=== PATIENT | male | born 1955 | race Caucasian/White ===

== ENCOUNTER 2017-09-13 19:34 | Inpatient (IN) | payer MEDICARE ==
[~2017-09-13] VITALS: Ht 165.1 cm; Wt 133.6 kg
[2017-09-13 20:09] LABS: HEMATOCRIT 22.9 % (41-53); HEMOGLOBIN 7.5 g/dL (13.5-17.5); MEAN CORPUSCULAR HGB CONC 32.6 G/dL (31.0-37.0); MEAN CORPUSCULAR VOLUME 104 fL (80-100); RED BLOOD CELL COUNT(AUTO) 2.19 MIL/uL (4.50-5.90); RED CELL DISTRIBUTION WIDTH 20.3 % (11.5-14.5); WHITE BLOOD COUNT (AUTO) 18.7 K/uL (4.5-11.0)
[2017-09-13 20:16] LABS: CALCIUM, TOTAL 7.9 mg/dL (8.8-10.5); CREATININE 2.72 mg/dL (0.60-1.30); POTASSIUM 4.5 mmol/L (3.5-5.1)
[2017-09-13 20:22] LABS: TOTAL PROTEIN, SERUM 6.3 g/dL (6.4-8.2)
[2017-09-13] MEDS ORDERED: 0.9% SODIUM CHLORIDE 5 ML NEB SOLUTION NEB ONE (20:23)
[2017-09-13] MEDS ORDERED: ALBUTEROL SULFATE 5 MG/ML 20 ML NEB SOLN [BULK] NEB ONE (20:30)
[2017-09-13] MEDS ORDERED: IPRATROPIUM BROMIDE 0.5 MG/2.5 ML NEB SOLUTION NEB ONE (20:30)
[2017-09-13 21:28] LABS: PLATELET COUNT (AUTO) 91 K/uL (150-450)
[2017-09-13] MEDS ORDERED: AZITHROMYCIN 500 MG/NS 250 ML IV ONE (21:30)
[2017-09-13] MEDS ORDERED: CefTRIAXone 1 GM/DEXTROSE 50 ML IV ONE (21:30)
[2017-09-13] MEDS ORDERED: SODIUM CHLORIDE 0.9% 1,000 ML IV ONE ×4 (21:30→22:45)
[2017-09-13] MEDS ORDERED: ASPIRIN 325 MG TABLET PO ONE (21:30)
[2017-09-13 21:32] LABS: CREATINE KINASE MB 11.3 ng/mL (0-5)
[2017-09-13 21:43] LABS: BAND NEUTROPHILS % (MANUAL) 30 % (1-5); BASOPHILS % (MANUAL) 1 % (0-2); EOSINOPHILS % (MANUAL) 1 % (1-6); LYMPHOCYTES % (MANUAL) 7 % (22-44); METAMYELOCYTES % 4 % (0-0); MYELOCYTES % 3 % (0-0); TOTAL CELLS COUNTED 100
[2017-09-13 21:45] LABS: RBC MORPHOLOGY COMMENT ABNORMAL R
[2017-09-13] MEDS ORDERED: ONDANSETRON HCL 4 MG/2 ML VIAL IVP PRN ×2 (21:45→22:45)
[2017-09-13] MEDS ORDERED: 0.9% SODIUM CHLORIDE 10 ML SYRINGE IVP PRN (21:45)
[2017-09-13] MEDS ORDERED: ACETAMINOPHEN 325 MG TABLET PO PRN ×2 (21:45→22:45)
[2017-09-13 22:25] LABS: LACTIC ACID 12.8 mmol/L (0.4-2.0)
[2017-09-13] MEDS ORDERED: BISACODYL 10 MG RECTAL RECTAL SUPPOSITORY PR PRN (22:45)
[2017-09-13] MEDS ORDERED: MORPHINE SULFATE 2 MG/ML SYRINGE IVP PRN (22:45)
[2017-09-13] MEDS ORDERED: ZOLPIDEM TARTRATE 5 MG TABLET PO PRN (22:45)
[2017-09-13] MEDS ORDERED: MAGNESIUM HYDROXIDE SUSPENSION 30 ML UDCUP PO PRN (22:45)
[2017-09-13] MEDS ORDERED: *CLINICAL-LEVOFLOXACIN IVPB DOSING CLINICAL ONE ×2 (22:45)
[2017-09-13] MEDS ORDERED: HYDROCODONE/ACETAMINOPHEN 5-325 MG TABLET PO PRN (22:45)
[2017-09-13 23:46] LABS: REFLEX LACTIC ACID? YES YES
[2017-09-13 23:51] LABS: ABG A-A DIFF O2 267.2 mmHg (10-20.0); ABG BASE EXCESS -21.2 mmol/L (-2.0-3.0); ABG OXYHEMOGLOBIN 76.6 % (94.0-100.0); ABG PCO2 25 mmHg (35-45); TEMPERATURE, FAHRENHEIT, BG 99.3 FAHREN (96.0-98.6)
[2017-09-13 23:52] LABS: ABG HCO3 9.3 mmol/L (22.0-26.0); ABG PH 7.128 (7.35-7.450)
[2017-09-13 23:53] LABS: ALLEN TEST, BLOOD GAS Positive
[2017-09-14] VITALS (13 sets, daily range): BP systolic 74–114; BP diastolic 28–53
[2017-09-14] MEDS ORDERED: HEPARIN SODIUM,PORCINE 5,000 UNITS/ML VIAL SQ SCH
[2017-09-14] MEDS ORDERED: LEVOFLOXACIN 750 MG/D5% WATER 150 ML IV SCH (02:00)
[2017-09-14 02:38] LABS: LACTIC ACID 12.3 mmol/L (0.4-2.0)
[2017-09-14] MEDS ORDERED: INFLUENZA VIRUS VACCINE QVS 2017-18 (3YR+)/PF 60 MCG/0.5 ML SYRINGE IM ONE (03:15)
[2017-09-14 03:51] LABS: REFLEX LACTIC ACID? YES YES
[2017-09-14 06:34] LABS: HEMATOCRIT 21.7 % (41-53); HEMOGLOBIN 7.1 g/dL (13.5-17.5); MEAN CORPUSCULAR HEMOGLOBIN 34.6 pg (26.0-34.0); MEAN CORPUSCULAR HGB CONC 32.7 G/dL (31.0-37.0); MEAN CORPUSCULAR VOLUME 106 fL (80-100); PLATELET COUNT (AUTO) 86 K/uL (150-450); RED BLOOD CELL COUNT(AUTO) 2.04 MIL/uL (4.50-5.90); RED CELL DISTRIBUTION WIDTH 20.7 % (11.5-14.5); WHITE BLOOD COUNT (AUTO) 11.4 K/uL (4.5-11.0)
[2017-09-14 08:02] LABS: ALBUMIN 1.8 g/dL (3.4-5.0); BILIRUBIN,TOTAL 3.7 mg/dL (0.1-1.0); CALCIUM, TOTAL 7.4 mg/dL (8.8-10.5); CREATININE 2.56 mg/dL (0.60-1.30); POTASSIUM 4.2 mmol/L (3.5-5.1); TOTAL PROTEIN, SERUM 5.7 g/dL (6.4-8.2)
[2017-09-14 08:09] LABS: BAND NEUTROPHILS % (MANUAL) 33 % (1-5); LYMPHOCYTES % (MANUAL) 11 % (22-44); METAMYELOCYTES % 2 % (0-0); MYELOCYTES % 4 % (0-0); TOTAL CELLS COUNTED 100
[2017-09-14 08:10] LABS: WBC MORPHOLOGY TOXIC GRANULATION
[2017-09-14] MEDS ORDERED: FUROSEMIDE 20 MG/2 ML VIAL IVP ONE (09:00)
[2017-09-14] MEDS ORDERED: PANTOPRAZOLE SODIUM 40 MG DR TABLET PO SCH (09:00)
[2017-09-14] MEDS: DOCUSATE SODIUM 100 MG CAPSULE PO SCH ×2 (09:00→21:00)
[2017-09-14] MEDS ORDERED: SODIUM BICARBONATE [ADULT] 8.4% 50 MEQ/50 ML SYRINGE IVP ONE ×2 (09:15→20:00)
[2017-09-14 09:33] LABS: TEMPERATURE, FAHRENHEIT, BG 98.6 FAHREN (96.0-98.6)
[2017-09-14 09:36] LABS: ABG A-A DIFF O2 550.3 mmHg (10-20.0); ABG BASE EXCESS -16.7 mmol/L (-2.0-3.0); ABG HCO3 12.3 mmol/L (22.0-26.0); ABG OXYHEMOGLOBIN 95.3 % (94.0-100.0); ABG PCO2 32 mmHg (35-45)
[2017-09-14 09:37] LABS: ALLEN TEST, BLOOD GAS Positive
[2017-09-14] MEDS ORDERED: SODIUM CHLORIDE 0.9% 500 ML IV ONE ×3 (09:56→22:11)
[2017-09-14] MEDS: OCTREOTIDE ACETATE 500 MCG in DEXTROSE 5%-WATER 97.5 ML IV SCH ×2 (11:48→22:39)
[2017-09-14] MEDS: PANTOPRAZOLE SODIUM 80 MG in SODIUM CHLORIDE 0.9% 100 ML IV SCH ×2 (11:48→22:39)
[2017-09-14] MEDS ORDERED: MAGNESIUM SULFATE 1 GM in DEXTROSE 5%-WATER 50 ML IV ONE (12:45)
[2017-09-14 13:22] LABS: APPEARANCE,URINE CLOUDY (CLEAR); GLUCOSE, URINE (UA) NEGATIVE (NEGATIVE); KETONES,URINE TRACE mg/dL (NEGATIVE); LEUKOCYTE ESTERASE ,URINE TRACE (NEGATIVE); OCCULT BLOOD,URINE NEGATIVE (NEGATIVE); PROTEIN,URINE POS 1+ (NEGATIVE)
[2017-09-14 13:33] LABS: RBC,URINE None Seen /HPF (0-2); TRANSITIONAL EPI CELLS,URINE Rare /LPF (None Seen); WBC,URINE 0-2 /HPF (0-5)
[2017-09-14 13:34] LABS: FINE GRANULAR CASTS,URINE 0-2 /LPF (None Seen); HYALINE CASTS, URINE 0-2 /LPF (None Seen)
[2017-09-14] MEDS ORDERED: NOREPINEPHRINE 4 MG/D5%-WATER 250 ML IV ONE (13:43)
[2017-09-14 13:58] LABS: ABG A-A DIFF O2 422.9 mmHg (10-20.0); ABG BASE EXCESS -16.2 mmol/L (-2.0-3.0); ABG HCO3 12.4 mmol/L (22.0-26.0); ABG OXYHEMOGLOBIN 85.3 % (94.0-100.0); ABG PCO2 41 mmHg (35-45); ABG PH 7.125 (7.35-7.450); ALLEN TEST, BLOOD GAS Positive; TEMPERATURE, FAHRENHEIT, BG 98.6 FAHREN (96.0-98.6)
[2017-09-14 13:59] LABS: IPAP, BG 14 cm H2O
[2017-09-14] MEDS ORDERED: RAPID SEQUENCE KIT [RSI] 1 EACH KIT ONE ×2 (14:15)
[2017-09-14] MEDS ORDERED: ROCURONIUM BROMIDE 10 MG/ML 5 ML VIAL ONE ×2 (14:18→14:22)
[2017-09-14] MEDS ORDERED: ETOMIDATE 2 MG/ML 10 ML VIAL ONE ×2 (14:25)
[2017-09-14] MEDS ORDERED: VANCOMYCIN HCL 1.5 GM in DEXTROSE 5%-WATER 250 ML IV ONE (15:30)
[2017-09-14] MEDS: LACTULOSE 20 GM/30 ML SOLUTION UDCUP PO SCH ×2 (16:00→22:39)
[2017-09-14] MEDS ORDERED: ETOMIDATE 2 MG/ML 10 ML VIAL IVP ONE (16:45)
[2017-09-14] MEDS ORDERED: ROCURONIUM BROMIDE 10 MG/ML 5 ML VIAL IVP ONE (16:45)
[2017-09-14] MEDS: NOREPINEPHRINE 4 MG/D5%-WATER 250 ML IV PRN ×2 (17:28→21:10)
[2017-09-14] MEDS: PIPERACILLIN SODIUM/TAZOBACTAM 2.25 GM in DEXTROSE 5%-WATER 50 ML IV SCH ×2 (17:29→22:42)
[2017-09-14 17:48] LABS: ABG A-A DIFF O2 612.1 mmHg (10-20.0); ABG BASE EXCESS -17.8 mmol/L (-2.0-3.0); ABG HCO3 11.3 mmol/L (22.0-26.0); ABG OXYHEMOGLOBIN 84.5 % (94.0-100.0); ABG PCO2 44 mmHg (35-45); TEMPERATURE, FAHRENHEIT, BG 95.2 FAHREN (96.0-98.6)
[2017-09-14 17:49] LABS: ABG PH 7.067 (7.35-7.450); ALLEN TEST, BLOOD GAS Positive
[2017-09-14 17:52] LABS: CALCIUM, TOTAL 7.5 mg/dL (8.8-10.5); CREATININE 3.09 mg/dL (0.60-1.30); POTASSIUM 5.5 mmol/L (3.5-5.1)
[2017-09-14] MEDS ORDERED: DEXTROSE 50%-WATER 25 GM/50 ML SYRINGE IVP ONE (18:11)
[2017-09-14] MEDS: DEXTROSE 50%-WATER 25 GM/50 ML SYRINGE IVP PRN ×2 (18:15→18:38)
[2017-09-14 19:44] LABS: ABG A-A DIFF O2 576.3 mmHg (10-20.0); ABG BASE EXCESS -18.3 mmol/L (-2.0-3.0); ABG HCO3 11.1 mmol/L (22.0-26.0); ABG OXYHEMOGLOBIN 93.5 % (94.0-100.0); ABG PCO2 42 mmHg (35-45)
[2017-09-14 19:45] LABS: ALLEN TEST, BLOOD GAS Positive
[2017-09-14] MEDS ORDERED: PROPOFOL 1000 MG/ISO-OSM 100 ML IV PRN (19:49)
[2017-09-14] MEDS ORDERED: SODIUM BICARBONATE 100 MEQ in DEXTROSE 5%-WATER 1,000 ML IV SCH (20:00)
[2017-09-14 21:27] LABS: GLUCOSE,POINT OF CARE 79 MG/DL (70-110)
[2017-09-14 22:27] LABS: GLUCOSE,POINT OF CARE 71 MG/DL (70-110)
[2017-09-14] MEDS: PHENYLEPHRINE 200 MG/D5%-WATER 250 ML IV PRN (22:51)
[2017-09-15] VITALS (18 sets, daily range): BP systolic 78–109; BP diastolic 32–57
[2017-09-15] MEDS: NOREPINEPHRINE 4 MG/D5%-WATER 250 ML IV PRN ×8 (00:33→22:23)
[2017-09-15] MEDS: VASOPRESSIN 40 UNITS in DEXTROSE 5%-WATER 98 ML IV PRN ×2 (00:39→19:55)
[2017-09-15] MEDS ORDERED: SODIUM CHLORIDE 0.9% 500 ML IV ONE ×2 (02:17→16:22)
[2017-09-15] MEDS: PIPERACILLIN SODIUM/TAZOBACTAM 2.25 GM in DEXTROSE 5%-WATER 50 ML IV SCH ×4 (04:01→21:04)
[2017-09-15 05:43] LABS: CALCIUM, TOTAL 7.3 mg/dL (8.8-10.5); CREATININE 3.87 mg/dL (0.60-1.30); MAGNESIUM 2.1 mg/dL (1.80-2.40); POTASSIUM 5.3 mmol/L (3.5-5.1); THYROID STIMULATING HORMONE 0.88 uIU/mL (0.36-3.74)
[2017-09-15 05:56] LABS: HEMATOCRIT 26.6 % (41-53); HEMOGLOBIN 8.5 g/dL (13.5-17.5); MEAN CORPUSCULAR HEMOGLOBIN 33.6 pg (26.0-34.0); MEAN CORPUSCULAR HGB CONC 32.2 G/dL (31.0-37.0); MEAN CORPUSCULAR VOLUME 105 fL (80-100); PLATELET COUNT (AUTO) 116 K/uL (150-450); RED BLOOD CELL COUNT(AUTO) 2.54 MIL/uL (4.50-5.90); RED CELL DISTRIBUTION WIDTH 23.8 % (11.5-14.5)
[2017-09-15] MEDS: OCTREOTIDE ACETATE 500 MCG in DEXTROSE 5%-WATER 97.5 ML IV SCH ×2 (05:59→15:56)
[2017-09-15 06:00] LABS: PHOSPHORUS 9.4 mg/dL (2.5-4.9)
[2017-09-15] MEDS: PANTOPRAZOLE SODIUM 80 MG in SODIUM CHLORIDE 0.9% 100 ML IV SCH ×2 (06:00→15:55)
[2017-09-15] MEDS ORDERED: IPRATROPIUM BROMIDE 0.5 MG/2.5 ML NEB SOLUTION NEB PRN (06:15)
[2017-09-15] MEDS ORDERED: ALBUTEROL SULFATE 2.5 MG/0.5 ML NEB SOLUTION NEB PRN (06:15)
[2017-09-15 07:14] LABS: BAND NEUTROPHILS % (MANUAL) 38 % (1-5); LYMPHOCYTES % (MANUAL) 4 % (22-44); METAMYELOCYTES % 2 % (0-0); MYELOCYTES % 9 % (0-0); TOTAL CELLS COUNTED 100
[2017-09-15 07:15] LABS: WBC MORPHOLOGY TOXIC GRANULATION
[2017-09-15] MEDS ORDERED: HEPARIN SODIUM,PORCINE 5,000 UNITS/ML VIAL SQ ONE (07:34)
[2017-09-15] MEDS: DOPamine HCL 400 MG/D5%-WATER 250 ML IV PRN ×6 (07:49→22:21)
[2017-09-15] MEDS: IPRATROPIUM BROMIDE 0.5 MG/2.5 ML NEB SOLUTION NEB SCH ×5 (07:54→22:47)
[2017-09-15] MEDS: ALBUTEROL SULFATE 2.5 MG/0.5 ML NEB SOLUTION NEB SCH ×5 (07:54→22:47)
[2017-09-15] MEDS ORDERED: VANCOMYCIN HCL 1.5 GM in DEXTROSE 5%-WATER 250 ML IV SCH (08:00)
[2017-09-15 08:37] LABS: ABG A-A DIFF O2 597.5 mmHg (10-20.0); ABG BASE EXCESS -20.5 mmol/L (-2.0-3.0); ABG OXYHEMOGLOBIN 85.7 % (94.0-100.0); ABG PCO2 45 mmHg (35-45); TEMPERATURE, FAHRENHEIT, BG 98.6 FAHREN (96.0-98.6)
[2017-09-15 08:38] LABS: ABG PH 6.998 (7.35-7.450)
[2017-09-15 08:39] LABS: ABG HCO3 9.6 mmol/L (22.0-26.0); ALLEN TEST, BLOOD GAS Positive
[2017-09-15] MEDS ORDERED: SODIUM BICARBONATE [ADULT] 8.4% 50 MEQ/50 ML SYRINGE IVP ONE ×5 (08:45→12:30)
[2017-09-15] MEDS: LACTULOSE 20 GM/30 ML SOLUTION UDCUP PO SCH ×3 (09:00→21:00)
[2017-09-15] MEDS: DOCUSATE SODIUM 100 MG CAPSULE PO SCH ×2 (09:00→21:00)
[2017-09-15] MEDS ORDERED: VANCOMYCIN HCL 1 GM/D5% WATER 200 ML IV PRN (09:30)
[2017-09-15] MEDS ORDERED: EPINEPHrine 2 MG in DEXTROSE 5%-WATER 248 ML IV PRN (10:00)
[2017-09-15] MEDS ORDERED: ALBUMIN HUMAN 25%-50GM/200ML 200 ML IV ONE ×2 (10:00→11:15)
[2017-09-15] MEDS: MetroNIDAZOLE 500 MG/NACL 100 ML IV SCH ×2 (10:56→18:55)
[2017-09-15] MEDS: PHENYLEPHRINE 200 MG/D5%-WATER 250 ML IV PRN ×2 (11:00→22:23)
[2017-09-15 11:27] LABS: GLUCOSE COMMENT 1 Doctor Notified; GLUCOSE,POINT OF CARE 77 MG/DL (70-110)
[2017-09-15] MEDS ORDERED: ATROPINE SULFATE 0.1 MG/ML 10 ML SYRINGE IVP ONE (12:30)
[2017-09-15] MEDS: CALCIUM GLUCONATE 100 MG/ML 10 ML IVP SCH ×4 (13:03→14:30)
[2017-09-15] MEDS ORDERED: SODIUM CHLORIDE 0.9% 2,000 ML IV ONE (14:06)
[2017-09-15 14:43] LABS: ALBUMIN 2.1 g/dL (3.4-5.0); BILIRUBIN,TOTAL 6.4 mg/dL (0.1-1.0); CALCIUM, TOTAL 6.9 mg/dL (8.8-10.5); CREATININE 4.35 mg/dL (0.60-1.30); POTASSIUM 4.5 mmol/L (3.5-5.1); TOTAL PROTEIN, SERUM 5.1 g/dL (6.4-8.2)
[2017-09-15] MEDS ORDERED: SODIUM CHLORIDE 0.9% 100 ML ONE (15:20)
[2017-09-15] MEDS: [UNRECOGNIZED DRUG - OTHER] IV SCH ×4 (15:39→22:20)
[2017-09-15] MEDS: SODIUM BICARBONATE IV SCH ×4 (15:39→22:20)
[2017-09-15] MEDS: CALCIUM GLUCONATE IV SCH ×4 (15:39→22:20)
[2017-09-15 15:51] LABS: MEAN CORPUSCULAR HEMOGLOBIN 33.7 pg (26.0-34.0); MEAN CORPUSCULAR VOLUME 105 fL (80-100); PLATELET COUNT (AUTO) 79 K/uL (150-450); RED CELL DISTRIBUTION WIDTH 24.7 % (11.5-14.5)
[2017-09-15 16:01] LABS: HEMOGLOBIN 6.4 g/dL (13.5-17.5); WHITE BLOOD COUNT (AUTO) 33.8 K/uL (4.5-11.0)
[2017-09-15 16:09] LABS: CALCIUM, TOTAL 6.9 mg/dL (8.8-10.5); CREATININE 4.49 mg/dL (0.60-1.30); POTASSIUM 4.6 mmol/L (3.5-5.1)
[2017-09-15 16:12] LABS: INR 2.9 (0.9-1.1); PROTHROMBIN TIME 30.9 SEC (9.4-11.6)
[2017-09-15 16:55] LABS: BAND NEUTROPHILS % (MANUAL) 54 % (1-5); LYMPHOCYTES % (MANUAL) 15 % (22-44); METAMYELOCYTES % 7 % (0-0); MYELOCYTES % 1 % (0-0); TOTAL CELLS COUNTED 100
[2017-09-15 16:56] LABS: RBC MORPHOLOGY COMMENT ABNORMAL RBC MORPH
[2017-09-15] MEDS: EPINEPHRINE IV PRN (17:47)
[2017-09-15] MEDS: WATER IV PRN (17:47)
[2017-09-15] MEDS: DEXTROSE 5% IV PRN (17:47)
[2017-09-15 18:14] LABS: CREATINE KINASE MB 19.8 ng/mL (0-5)
[2017-09-15 23:18] LABS: CALCIUM, TOTAL 6.8 mg/dL (8.8-10.5); CREATININE 3.85 mg/dL (0.60-1.30); POTASSIUM 4.5 mmol/L (3.5-5.1)
[2017-09-16] VITALS: BP 83/46
[2017-09-16] MEDS: DOPamine HCL 400 MG/D5%-WATER 250 ML IV PRN ×9 (00:34→23:38)
[2017-09-16] MEDS: SODIUM BICARBONATE IV SCH ×8 (00:34→21:08)
[2017-09-16] MEDS: [UNRECOGNIZED DRUG - OTHER] IV SCH ×5 (00:34→12:41)
[2017-09-16] MEDS: CALCIUM GLUCONATE IV SCH ×8 (00:34→21:08)
[2017-09-16] MEDS: POTASSIUM CHLORIDE 20 MEQ in NXSTAGE RFP-402 K0/CA3 5,000 ML IRRIG PRN ×3 (00:35→09:46)
[2017-09-16] MEDS: WATER IV PRN ×3 (00:42→18:23)
[2017-09-16] MEDS: EPINEPHRINE IV PRN ×3 (00:42→18:23)
[2017-09-16] MEDS: DEXTROSE 5% IV PRN ×3 (00:42→18:23)
[2017-09-16] MEDS: OCTREOTIDE ACETATE 500 MCG in DEXTROSE 5%-WATER 97.5 ML IV SCH ×3 (01:37→23:18)
[2017-09-16] MEDS: PANTOPRAZOLE SODIUM 80 MG in SODIUM CHLORIDE 0.9% 100 ML IV SCH ×3 (01:38→21:50)
[2017-09-16] MEDS: ALBUTEROL SULFATE 2.5 MG/0.5 ML NEB SOLUTION NEB SCH ×6 (02:39→23:00)
[2017-09-16] MEDS: IPRATROPIUM BROMIDE 0.5 MG/2.5 ML NEB SOLUTION NEB SCH ×6 (02:39→23:00)
[2017-09-16] MEDS: MetroNIDAZOLE 500 MG/NACL 100 ML IV SCH ×3 (02:43→18:22)
[2017-09-16] MEDS: PIPERACILLIN SODIUM/TAZOBACTAM 2.25 GM in DEXTROSE 5%-WATER 50 ML IV SCH ×4 (02:44→21:08)
[2017-09-16] MEDS: NOREPINEPHRINE BITARTRATE 8 MG in DEXTROSE 5%-WATER 242 ML IV PRN ×3 (02:49→17:41)
[2017-09-16] MEDS ORDERED: SODIUM BICARBONATE [ADULT] 8.4% 50 MEQ/50 ML SYRINGE IVP ONE (03:04)
[2017-09-16 04:00] VITALS: BP 81/43
[2017-09-16 05:26] LABS: HEMATOCRIT 22.4 % (41-53); HEMOGLOBIN 7.3 g/dL (13.5-17.5); MEAN CORPUSCULAR HEMOGLOBIN 33.3 pg (26.0-34.0); MEAN CORPUSCULAR HGB CONC 32.3 G/dL (31.0-37.0); MEAN CORPUSCULAR VOLUME 103 fL (80-100); PLATELET COUNT (AUTO) 50 K/uL (150-450); RED BLOOD CELL COUNT(AUTO) 2.18 MIL/uL (4.50-5.90); RED CELL DISTRIBUTION WIDTH 22.8 % (11.5-14.5)
[2017-09-16 05:30] LABS: WHITE BLOOD COUNT (AUTO) 31.4 K/uL (4.5-11.0)
[2017-09-16] MEDS ORDERED: SODIUM CHLORIDE 0.9% 500 ML IV ONE (05:52)
[2017-09-16 05:59] LABS: CALCIUM, TOTAL 6.6 mg/dL (8.8-10.5); CREATININE 3.79 mg/dL (0.60-1.30); MAGNESIUM 1.8 mg/dL (1.80-2.40); PHOSPHORUS 7.5 mg/dL (2.5-4.9); POTASSIUM 4.2 mmol/L (3.5-5.1); THYROID STIMULATING HORMONE 0.58 uIU/mL (0.36-3.74)
[2017-09-16 07:31] LABS: BAND NEUTROPHILS % (MANUAL) 17 % (1-5); LYMPHOCYTES % (MANUAL) 16 % (22-44); METAMYELOCYTES % 3 % (0-0); TOTAL CELLS COUNTED 100
[2017-09-16 07:33] LABS: RBC MORPHOLOGY COMMENT ABNORMAL R
[2017-09-16 08:00] VITALS: BP 84/43
[2017-09-16] MEDS ORDERED: CALCIUM GLUCONATE 1,000 MG in DEXTROSE 5%-WATER 50 ML IV ONE (08:30)
[2017-09-16] MEDS: PHENYLEPHRINE 200 MG/D5%-WATER 250 ML IV PRN ×2 (08:31→20:27)
[2017-09-16] MEDS: DOCUSATE SODIUM 100 MG CAPSULE PO SCH ×2 (08:40→21:00)
[2017-09-16] MEDS: LACTULOSE 20 GM/30 ML SOLUTION UDCUP PO SCH ×3 (08:42→21:00)
[2017-09-16 08:53] LABS: CALCIUM, TOTAL 6.7 mg/dL (8.8-10.5); CREATINE KINASE MB 110.1 ng/mL (0-5); CREATININE 3.81 mg/dL (0.60-1.30); POTASSIUM 4.2 mmol/L (3.5-5.1)
[2017-09-16] MEDS ORDERED: VANCOMYCIN HCL 1.5 GM in DEXTROSE 5%-WATER 250 ML IV ONE (10:00)
[2017-09-16 10:05] LABS: ABG A-A DIFF O2 480.2 mmHg (10-20.0); ABG BASE EXCESS -9.5 mmol/L (-2.0-3.0); ABG HCO3 17.1 mmol/L (22.0-26.0); ABG OXYHEMOGLOBIN 78.4 % (94.0-100.0); ABG PCO2 39 mmHg (35-45); ABG PH 7.273 (7.35-7.450); TEMPERATURE, FAHRENHEIT, BG 97.8 FAHREN (96.0-98.6)
[2017-09-16 10:06] LABS: ALLEN TEST, BLOOD GAS Positive
[2017-09-16 12:00] VITALS: BP 70/38
[2017-09-16 13:38] LABS: CREATININE 3.09 mg/dL (0.60-1.30); POTASSIUM 3.2 mmol/L (3.5-5.1)
[2017-09-16 13:45] LABS: CALCIUM, TOTAL 5.8 mg/dL (8.8-10.5)
[2017-09-16] MEDS ORDERED: POTASSIUM CHLORIDE 10% 40 MEQ/30 ML LIQUID UDCUP GT ONE (14:30)
[2017-09-16] MEDS: SODIUM CHLORIDE 0.45% IV SCH ×3 (15:08→21:08)
[2017-09-16] MEDS: VASOPRESSIN 40 UNITS in DEXTROSE 5%-WATER 98 ML IV PRN (15:17)
[2017-09-16 15:35] LABS: POTASSIUM 3.1 mmol/L (3.5-5.1)
[2017-09-16 15:40] LABS: CALCIUM, TOTAL 5.7 mg/dL (8.8-10.5)
[2017-09-16 16:00] VITALS: BP 60/31
[2017-09-16 19:13] LABS: CALCIUM, TOTAL 6.8 mg/dL (8.8-10.5); CREATININE 3.58 mg/dL (0.60-1.30); MAGNESIUM 1.7 mg/dL (1.80-2.40); POTASSIUM 3.9 mmol/L (3.5-5.1)
[2017-09-17 00:17] VITALS: BP 42/24
[2017-09-17] MEDS: WATER IV PRN (00:17)
[2017-09-17] MEDS: EPINEPHRINE IV PRN (00:17)
[2017-09-17] MEDS: DEXTROSE 5% IV PRN (00:17)
== END 2017-09-17 03:05 | disposition expired | DRG 871 ==
LOC: EDBD 19:39 → EMS 19:39 → 5S 22:20 → ICU 09-14 06:44
PROVIDERS: ADMIT Internal Medicine; ATTEND Internal Medicine
PROC: 5A1945Z Respiratory Ventilation, 24-96 Consecutive Hours (ICD-10-PCS; principal; 2017-09-14)
PROC: 0BH17EZ Insertion of Endotracheal Airway into Trachea, Via Natural or Artificial Opening (ICD-10-PCS; 2017-09-14)
PROC: 02HV33Z Insertion of Infusion Device into Superior Vena Cava, Percutaneous Approach (ICD-10-PCS; 2017-09-14)
PROC: 30233N1 Transfusion of Nonautologous Red Blood Cells into Peripheral Vein, Percutaneous Approach (ICD-10-PCS; 2017-09-14)
PROC: 5A09357 Assistance with Respiratory Ventilation, Less than 24 Consecutive Hours, Continuous Positive Airway Pressure (ICD-10-PCS; 2017-09-14)
PROC: 02H633Z Insertion of Infusion Device into Right Atrium, Percutaneous Approach (ICD-10-PCS; 2017-09-15)
PROC: 30233L1 Transfusion of Nonautologous Fresh Plasma into Peripheral Vein, Percutaneous Approach (ICD-10-PCS; 2017-09-15)
PROC: 30233K1 Transfusion of Nonautologous Frozen Plasma into Peripheral Vein, Percutaneous Approach (ICD-10-PCS; 2017-09-15)
DX: A40.9 Streptococcal sepsis, unspecified (principal); J18.9 Pneumonia, unspecified organism; I21.4 Non-ST elevation (NSTEMI) myocardial infarction; I46.9 Cardiac arrest, cause unspecified; E43 Unspecified severe protein-calorie malnutrition; J96.01 Acute respiratory failure with hypoxia; E66.01 Morbid (severe) obesity due to excess calories; D69.6 Thrombocytopenia, unspecified; R57.9 Shock, unspecified; N17.9 Acute kidney failure, unspecified; D68.4 Acquired coagulation factor deficiency; K76.6 Portal hypertension; K92.2 Gastrointestinal hemorrhage, unspecified; E87.2 Acidosis; Z99.11 Dependence on respirator [ventilator] status; Z68.42 Body mass index [BMI] 45.0-49.9, adult; D63.8 Anemia in other chronic diseases classified elsewhere; E78.5 Hyperlipidemia, unspecified; F10.10 Alcohol abuse, uncomplicated; H57.04 Mydriasis; I10 Essential (primary) hypertension; K70.30 Alcoholic cirrhosis of liver without ascites; K72.90 Hepatic failure, unspecified without coma; Z53.9 Procedure and treatment not carried out, unspecified reason; Z66 Do not resuscitate; Z87.891 Personal history of nicotine dependence
CPT/HCPCS: 82270; 82570; 82805; 82962; 83605; 83735; 84100; 84156; 84300; 84443; 84540; 86850; 86900; 86901; 86920; 86927; 87040; 87070; 87205; 87340; 90947; 93005; 93306; 94002; 94003; 94640; 94660; 96365; 96375; 99291; C9113; J0171; J0456; J0610; J0696; J1265; J1644; J1940; J1956; J2354; J2370; J2405; J2543; J2704; J3370; J3475; J3480; J3490; J7030; J7040; J7050; J7060; P9016; P9017; P9046